=== PATIENT | male | born 1935 | race African-American/Black ===

== ENCOUNTER 2017-11-24 10:24 | Inpatient (IN) | payer MEDICARE, OTHER ==
[~2017-11-24] VITALS: Ht 182.9 cm; Wt 64.5 kg
[2017-11-24] MEDS ORDERED: Isovue-300 100ml vial INJ PRN (11:15)
--- NOTE | 2017-11-24 11:49 | Diagnostic Imaging Report ---
Indication: Dyspnea Comparison: None A single view chest radiograph was obtained. Findings: Patchy mild basal atelectasis demonstrated. Heart size is normal. Bones are osteopenic. IMPRESSION: Mild basal atelectasis
[2017-11-24 11:55] VITALS: BP 156/103
[2017-11-24 12:17] LABS: BASOPHILS % (AUTO) 0.8 % (0.0-2.0); HEMATOCRIT 54.6 % (42.0-52.0); HEMOGLOBIN 17.4 G/DL (14.2-18.0); LYMPHOCYTES % (AUTO) 20.8 % (20.0-45.0); MEAN CORPUSCULAR VOLUME 98 FL (80-99); NEUTROPHILS % (AUTO) 66.4 % (45.0-75.0); PLATELET COUNT 316 K/UL (150-450); RED BLOOD COUNT 5.55 M/UL (4.70-6.10); RED CELL DISTRIBUTION WIDTH 14.5 % (11.6-14.8); WHITE BLOOD COUNT 7.1 K/UL (4.8-10.8)
[2017-11-24 12:34] LABS: ANION GAP 13 mmol/L (5-15); BLOOD UREA NITROGEN 8 mg/dL (7-18); CALCIUM 9.7 MG/DL (8.5-10.1); CARBON DIOXIDE 28 MMOL/L (21-32); CHLORIDE 100 MMOL/L (98-107); CREATININE 0.9 MG/DL (0.55-1.30); POTASSIUM 3.7 MMOL/L (3.5-5.1); SODIUM 141 MMOL/L (136-145)
[2017-11-24 12:47] LABS: ALANINE AMINOTRANSFERASE 29 U/L (12-78); ALBUMIN/GLOBULIN RATIO 0.7 (1.0-2.7); ALKALINE PHOSPHATASE 157 U/L (46-116); ASPARTATE AMINO TRANSFERASE 57 U/L (15-37); BILIRUBIN,TOTAL 0.6 MG/DL (0.2-1.0); CKMB 1.9 NG/ML (0.0-3.6); CREATINE KINASE 117 U/L (26-308)
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
[2017-11-24 13:00] VITALS: BP 158/92
[2017-11-24 13:12] LABS: APPEARANCE,URINE CLOUDY; BILIRUBIN, URINE NEGATIVE (NEGATIVE); GLUCOSE, URINE (UA) NEGATIVE (NEGATIVE); KETONES,URINE NEGATIVE (NEGATIVE); LEUKOCYTE ESTERASE ,URINE 2+ (NEGATIVE); NITRITE,URINE POSITIVE (NEGATIVE); PH,URINE 6.5 (4.5-8.0); PROTEIN,URINE 2+ (NEGATIVE); UROBILINOGEN,URINE 1 MG/DL (0.0-1.0)
[2017-11-24 13:20] LABS: COLOR,URINE YELLOW
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
[2017-11-24] MEDS ORDERED: cefTRIAXone 1 GM in NS 55 ML IVPB ONE (14:00)
[2017-11-24] MEDS ORDERED: ASPIR-LOW81 MG ORAL (15:34)
[2017-11-24] MEDS ORDERED: HTN med (15:34)
[2017-11-24 15:39] VITALS: BP 173/84
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
[2017-11-24] MEDS ORDERED: Milk of Magnesia 30ml Ud ORAL PRN (19:00)
[2017-11-24] MEDS ORDERED: Zolpidem 5mg tab ORAL PRN (19:00)
[2017-11-24] MEDS ORDERED: Carvedilol 12.5mg tab ORAL SCH (19:00)
[2017-11-24 20:00] VITALS: BP 154/77
[2017-11-24] MEDS: NS w/KCl 20mEq 1,000 ML IV SCH (20:14)
[2017-11-24] MEDS: Heparin 5000 units/ml inj SUBQ SCH (20:15)
[2017-11-24] MEDS: Carvedilol 12.5mg tab ORAL SCH (21:00)
[2017-11-24 22:08] VITALS: BP 138/77
[2017-11-25] VITALS: BP 154/70
[2017-11-25 04:00] VITALS: BP 146/74
[2017-11-25] MEDS: NS w/KCl 20mEq 1,000 ML IV SCH ×3 (06:00→14:00)
[2017-11-25 06:25] LABS: BASOPHILS % (AUTO) 1.1 % (0.0-2.0); EOSINOPHILS % (AUTO) 1.5 % (0.0-3.0); HEMATOCRIT 43.9 % (42.0-52.0); HEMOGLOBIN 14.4 G/DL (14.2-18.0); LYMPHOCYTES % (AUTO) 17.5 % (20.0-45.0); MEAN CORPUSCULAR VOLUME 97 FL (80-99); MONOCYTES % (AUTO) 11.6 % (1.0-10.0); NEUTROPHILS % (AUTO) 68.4 % (45.0-75.0); PLATELET COUNT 284 K/UL (150-450); RED BLOOD COUNT 4.51 M/UL (4.70-6.10); RED CELL DISTRIBUTION WIDTH 13.8 % (11.6-14.8); WHITE BLOOD COUNT 7.5 K/UL (4.8-10.8)
[2017-11-25 07:00] LABS: ALANINE AMINOTRANSFERASE 20 U/L (12-78); ALBUMIN/GLOBULIN RATIO 0.7 (1.0-2.7); ALKALINE PHOSPHATASE 115 U/L (46-116); ANION GAP 7 mmol/L (5-15); ASPARTATE AMINO TRANSFERASE 28 U/L (15-37); BILIRUBIN,TOTAL 0.7 MG/DL (0.2-1.0); BLOOD UREA NITROGEN 8 mg/dL (7-18); CARBON DIOXIDE 31 MMOL/L (21-32); CHLORIDE 103 MMOL/L (98-107); CHOLESTEROL 181 MG/DL (< 200); CREATININE 0.9 MG/DL (0.55-1.30); HDL CHOLESTEROL 119 MG/DL (40-60); POTASSIUM 4.2 MMOL/L (3.5-5.1); SODIUM 141 MMOL/L (136-145); TRIGLYCERIDES 56 MG/DL (30-150)
[2017-11-25 08:00] VITALS: BP 139/80
[2017-11-25] MEDS ORDERED: Aspirin EC 81mg tab ORAL SCH (09:00)
[2017-11-25] MEDS: Carvedilol 12.5mg tab ORAL SCH ×2 (09:01→20:47)
[2017-11-25] MEDS: Heparin 5000 units/ml inj SUBQ SCH ×2 (09:03→20:48)
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
[2017-11-25 11:48] VITALS: BP 122/73
--- NOTE | 2017-11-25 12:17 | Infectious Diseases Prog Note ---
Assessment/Plan Assessment/Plan Full consult dictated: A) 1) strep uti, ? enterococcus 2) pmh noted 3) allergies - nkda P) 1) rocephin 2) add ampicillin 3) check urine culture 4) thank you Subjective Allergies: Coded Allergies: PENICILLINS (Verified Allergy, Unknown, 11/24/17) Objective Vital Signs Last 24 Hour Vital Signs Date Time Temp Pulse Resp B/P (MAP) Pulse Ox O2 Delivery O2 Flow Rate FiO2 11/25/17 11:48 99.1 65 18 122/73 (89) 97 99.1 11/25/17 09:02 80 139/80 11/25/17 09:01 80 139/80 11/25/17 09:00 Room Air 11/25/17 08:00 84 11/25/17 08:00 98.4 80 18 139/80 (99) 96 98.4 11/25/17 04:00 73 11/25/17 04:00 98.0 72 21 146/74 (98) 94 98.0 11/25/17 00:00 72 11/25/17 00:00 98.2 69 22 154/70 (98) 95 98.2 11/24/17 22:08 69 138/77 (97) 11/24/17 21:00 69 138/77 11/24/17 21:00 Room Air 11/24/17 20:00 98.6 72 18 154/77 (102) 94 98.6 11/24/17 20:00 82 11/24/17 19:37 87 169/98 11/24/17 19:37 87 169/98 11/24/17 17:58 Room Air 11/24/17 17:05 98 20 173/84 99 Room Air 11/24/17 15:39 98 16 173/84 99 Room Air 11/24/17 13:00 89 18 158/92 99 Room Air Height (Feet): 6 Height (Inches): 0.00 Weight (Pounds): 154 Microbiology Date/Time Source Procedure Growth Status 11/24/17 12:50 Urine,Clean Catch Urine Culture - Preliminary Staphylococcus Species Resulted 11/24/17 14:55 Rectal Mucosa VRE Culture Pending Resulted 11/24/17 14:55 Rectal Mucosa - Preliminary Resulted Laboratory Tests Test 11/24/17 12:50 11/24/17 14:55 11/25/17 05:55 8/28/18 07:00 Urine Color Yellow Urine Appearance Cloudy Urine pH 6.5 (4.5-8.0) Urine Specific [place] 1.015 (1.005-1.035) Urine Protein 2+ (NEGATIVE) H Urine Glucose (UA) Negative (NEGATIVE) Urine Ketones Negative (NEGATIVE) Urine Blood 2+ (NEGATIVE) H Urine Nitrite Positive (NEGATIVE) H Urine Bilirubin Negative (NEGATIVE) Urine Urobilinogen 1 MG/DL (0.0-1.0) H Urine Leukocyte Esterase 2+ (NEGATIVE) H Urine RBC 2-4 /HPF (0 - 0) H Urine WBC 10-15 /HPF (0 - 0) H Urine Squamous Epithelial Cells Few /LPF (NONE/OCC) Urine Bacteria Many /HPF (NONE) H Lactic Acid Level 2.60 mmol/L (0.66-2.22) H 1.20 mmol/L (0.4-2.0) White Blood Count 7.5 K/UL (4.8-10.8) Red Blood Count 4.51 M/UL (4.70-6.10) L Hemoglobin 14.4 G/DL (14.2-18.0) Hematocrit 43.9 % (42.0-52.0) Mean Corpuscular Volume 97 FL (80-99) Mean Corpuscular Hemoglobin 31.9 PG (27.0-31.0) H Mean Corpuscular Hemoglobin Concent 32.7 G/DL (32.0-36.0) Red Cell Distribution Width 13.8 % (11.6-14.8) Platelet Count 284 K/UL (150-450) Mean Platelet Volume 6.8 FL (6.5-10.1) Neutrophils (%) (Auto) 68.4 % (45.0-75.0) Lymphocytes (%) (Auto) 17.5 % (20.0-45.0) L Monocytes (%) (Auto) 11.6 % (1.0-10.0) H Eosinophils (%) (Auto) 1.5 % (0.0-3.0) Basophils (%) (Auto) 1.1 % (0.0-2.0) Sodium Level 141 MMOL/L (136-145) Potassium Level 4.2 MMOL/L (3.5-5.1) Chloride Level 103 MMOL/L (98-107) Carbon Dioxide Level 31 MMOL/L (21-32) Anion Gap 7 mmol/L (5-15) Blood Urea Nitrogen 8 mg/dL (7-18) Creatinine 0.9 MG/DL (0.55-1.30) Estimat Glomerular Filtration Rate mL/min (>60) Glucose Level 108 MG/DL (74-106) H Calcium Level 9.0 MG/DL (8.5-10.1) Total Bilirubin 0.7 MG/DL (0.2-1.0) Aspartate Amino Transf (AST/SGOT) 28 U/L (15-37) Alanine Aminotransferase (ALT/SGPT) 20 U/L (12-78) Alkaline Phosphatase 115 U/L (46-116) Troponin I 0.012 ng/mL (0.000-0.056) Total Protein 7.5 G/DL (6.4-8.2) Albumin 3.0 G/DL (3.4-5.0) L Globulin 4.5 g/dL Albumin/Globulin Ratio 0.7 (1.0-2.7) L Triglycerides Level 56 MG/DL (30-150) Cholesterol Level 181 MG/DL (< 200) LDL Cholesterol 40 mg/dL (<100) HDL Cholesterol 119 MG/DL (40-60) H Cholesterol/HDL Ratio 1.5 (3.3-4.4) L Thyroid Stimulating Hormone (TSH) 1.357 uiU/mL (0.358-3.740) Urine Opiates Screen Negative (NEGATIVE) Urine Barbiturates Screen Negative (NEGATIVE) Phencyclidine (PCP) Screen Negative (NEGATIVE) Urine Amphetamines Screen Negative (NEGATIVE) Urine Benzodiazepines Screen Negative (NEGATIVE) Urine Cocaine Screen Negative (NEGATIVE) Urine Marijuana (THC) Screen Negative (NEGATIVE) Current Medications Medications (Trade) Dose Ordered Sig/Kp Route PRN Reason Start Time Stop Time Status Last Admin Dose Admin Acetaminophen (Tylenol) 650 mg Q4H PRN ORAL Mild Pain/Temp > 100.5 11/24/17 19:00 12/24/17 18:59 Amlodipine Besylate (Norvasc) 5 mg DAILY ORAL 11/25/17 09:00 12/25/17 08:59 11/25/17 09:02 Aspirin (Ecotrin) 81 mg DAILY ORAL 11/25/17 09:00 12/25/17 08:59 11/25/17 09:02 Carvedilol (Coreg) 12.5 mg EVERY 12 HOURS ORAL 11/24/17 21:00 12/24/17 20:59 11/25/17 09:01 Ceftriaxone Sodium 1 gm/ Dextrose 55 ml @ 110 mls/hr Q24H IVPB 11/25/17 15:00 12/02/17 14:59 Clonidine HCl (Catapres Tab) 0.1 mg Q4H PRN ORAL SBP above 160mmHg 11/24/17 19:00 12/24/17 18:59 Heparin Sodium (Porcine) (Heparin 5000 units/ml) 5,000 units EVERY 12 HOURS SUBQ 11/24/17 21:00 12/24/17 20:59 11/25/17 09:03 Iopamidol (Isovue-300 100ml) 100 ml NOW PRN INJ Radiology Procedure 11/24/17 11:15 11/26/17 11:12 Magnesium Hydroxide (Mom) 30 ml DAILYPRN PRN ORAL Constipation 11/24/17 19:00 12/24/17 18:59 Sodium Chloride 1,000 ml @ 100 mls/hr Q10H IV 11/24/17 20:00 12/24/17 19:59 11/25/17 10:55 Zolpidem Tartrate (Ambien) 5 mg HSPRN PRN ORAL Insomnia 11/24/17 19:00 12/01/17 18:59 Maria M Sexton MD Nov 25, 2017 12:17
[2017-11-25] MEDS ORDERED: Milk of Magnesia 30ml Ud ORAL PRN (13:49)
[2017-11-25] MEDS ORDERED: Vancomycin 1250mg/D5W 250ml 250 ML IVPB ONE (14:00)
[2017-11-25] MEDS ORDERED: Vancomycin 1250mg/D5W 250ml IVPB SCH (14:00)
[2017-11-25] MEDS ORDERED: cefTRIAXone 1 GM in D5W 55 ML IVPB SCH ×4 (15:00)
--- NOTE | 2017-11-25 15:44 | Cardiology Report ---
APPROVED REPORT EKG Measurement Heart [id number] Sinus rhythm with occasional premature ventricular complexes Abnormal ECG
[2017-11-25 16:10] VITALS: BP 153/86
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
[2017-11-25] MEDS ORDERED: Zolpidem 5mg tab ORAL PRN (19:00)
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
[2017-11-25 19:34] VITALS: BP 151/80
[2017-11-26] MEDS: NS w/KCl 20mEq 1,000 ML IV SCH ×2 (00:34→09:45)
[2017-11-26 00:42] VITALS: BP 155/77
[2017-11-26] MEDS ORDERED: Vancomycin 750mg/NS 250ml 250 ML IVPB SCH (02:00)
[2017-11-26] MEDS ORDERED: Vancomycin 750mg/NS 250ml IVPB SCH (02:00)
--- NOTE | 2017-11-26 04:00 | Progress Note ---
DATE: 11/25/2017 CARDIOLOGY PROGRESS NOTE SUBJECTIVE: The patient has some less discomfort in his facies and chest wall. He has no shortness of breath. OBJECTIVE: VITAL SIGNS: Revealed blood pressure increasing from 122/73 to 151/80, heart rate 64, respiratory rate 17, and afebrile. Monitored rhythm, sinus. CHEST: Tender chest wall. No difficulty with breathing. No stridor. LUNGS: Clear. CARDIAC: Regular. Normal S1, S2 with no murmur. ABDOMEN: Soft. EXTREMITIES: There is no edema. LABORATORY DATA: White count 7.5 and hemoglobin 14.4. Troponin 0.012. Albumin 3. LDL cholesterol 40. Chemistry panel within normal limits. Lactic acid level now normal. Urine culture with Staph species. IMPRESSION: 1. Noncardiac chest pain. 2. Chest wall trauma. 3. Facial fractures. 4. Hypertension. 5. Mild protein-calorie malnutrition. 6. Resolved lactic acidosis. 7. Urinary tract infection. PLAN: 1. Antiplatelet therapy. 2. Stepwise titration of antihypertensives. 3. Maintain adequate hydration. 4. Empiric antibiotics per primary care physician. 5. No additional cardiovascular workup other than echocardiogram presently is pending. Janes Cuellar M.D. DR: SHAHIDA JOB#: [id number] CC:
[2017-11-26 04:18] VITALS: BP 108/59
[2017-11-26 06:40] LABS: BASOPHILS % (AUTO) 0.9 % (0.0-2.0); HEMATOCRIT 45.1 % (42.0-52.0); HEMOGLOBIN 14.8 G/DL (14.2-18.0); LYMPHOCYTES % (AUTO) 23.2 % (20.0-45.0); MEAN CORPUSCULAR VOLUME 97 FL (80-99); MONOCYTES % (AUTO) 9.3 % (1.0-10.0); NEUTROPHILS % (AUTO) 65.6 % (45.0-75.0); PLATELET COUNT 273 K/UL (150-450); RED BLOOD COUNT 4.63 M/UL (4.70-6.10); WHITE BLOOD COUNT 8.6 K/UL (4.8-10.8)
[2017-11-26 06:47] LABS: ANION GAP 6 mmol/L (5-15); BLOOD UREA NITROGEN 7 mg/dL (7-18); CALCIUM 8.7 MG/DL (8.5-10.1); CARBON DIOXIDE 30 MMOL/L (21-32); CHLORIDE 105 MMOL/L (98-107); CREATININE 0.9 MG/DL (0.55-1.30); POTASSIUM 3.9 MMOL/L (3.5-5.1); SODIUM 141 MMOL/L (136-145)
[2017-11-26 08:00] VITALS: BP 156/89
[2017-11-26] MEDS: Carvedilol 12.5mg tab ORAL SCH (08:32)
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
[2017-11-26] MEDS: Heparin 5000 units/ml inj SUBQ SCH (08:35)
[2017-11-26] MEDS ORDERED: COREG12.5 MG ORAL (08:36)
[2017-11-26] MEDS ORDERED: LEVAQUIN500 MG ORAL (08:36)
[2017-11-26] MEDS ORDERED: NORVASC5 MG ORAL (08:36)
[2017-11-26] MEDS ORDERED: Aspirin EC 81mg tab ORAL SCH (09:00)
[2017-11-26] MEDS ORDERED: Isovue-300 100ml vial INJ PRN (11:15)
[2017-11-26 11:43] VITALS: BP 123/75
--- NOTE | 2017-11-26 15:59 | Cardiology Report ---
APPROVED REPORT EXAM: Two-dimensional and M-mode echocardiogram with Doppler and color Doppler. INDICATION Chest Pain M-Mode DIMENSIONS IVSd1.3 (0.7-1.1cm)Left Atrium (MM)3.5 (1.6-4.0cm) LVDd4.5 (3.5-5.6cm)Aortic Root3.7 (2.0-3.7cm) PWd1.4 (0.7-1.1cm)Aortic Cusp Exc.2.0 (1.5-2.0cm) LVDs2.3 (2.5-4.0cm) PWs1.6 cm Technically difficult study due to poor apical windows. Normal left ventricular chamber size. Mild global left ventricular hypokinesis. Abnormal inferoseptal motion to extent visualized. Left ventricular ejection fraction estimated to be 40-45 %. Study quality precludes accurate assessment of regional wall motion. Mild left ventricular hypertrophy by 2-D. No evidence of pericardial effusion. All other cardiac chamber sizes are within normal limits. Focal aortic valve sclerosis with adequate cusp excursion. Thickened mitral valve leaflets with normal excursion. Mitral annulus and aortic root calcification. Pulmonic valve not well visualized. Normal tricuspid valve structure. IVC at normal size with physiologic collapse. A color flow and spectral Doppler study was performed and revealed: Trace mitral regurgitation. Mitral diastolic velocities suggest reduced left ventricular relaxation c/w LV diastolic dysfunction (Grade I ). Trace tricuspid regurgitation. Tricuspid systolic velocities suggests peak right ventricular systolic pressure of 19 mmHg.
--- NOTE | 2017-11-26 23:45 | Consultation ---
DATE OF CONSULTATION: 11/25/2017 INFECTIOUS DISEASES CONSULTATION CONSULTING PHYSICIAN: Maria M Sexton M.D. ATTENDING PHYSICIAN: Fidel Cloud M.D. REFERRING PHYSICIAN: Fidel Cloud M.D. REASON FOR CONSULTATION: Complicated urinary tract infection. CHIEF COMPLAINT: The patient's chief complaint coming into the hospital is chest pain, rule out acute coronary syndrome. HISTORY OF PRESENT ILLNESS: This is an 82-year-old male, who came in to [facility] because of chest pain, rule out acute coronary syndrome. The patient was noted to have positive urinalysis with positive nitrite, 2+ leukocyte esterase, 10 to 15 white blood cells, and many bacteria. Urine culture grew out Streptococcus organisms, identification is pending. Infectious Disease consultation is requested for antibiotic management. The patient was on Rocephin. I added vancomycin. The patient is allergic to penicillin and could not give ampicillin. Final urine culture results are pending. MAR was noted. Orders were noted. Notes were reviewed. Case was discussed with RN. PAST MEDICAL HISTORY: The patient's past medical history includes history of the following. The patient has past medical history of hypertension. There is no history of diabetes, cancer, or heart disease mentioned. He did come in with chest pain however. Per the records, in addition to hypertension he has a past medical history of hyperlipidemia or dyslipidemia. MEDICATIONS: Upon reviewing the MAR, the patient is on the following medications. He is on Norvasc, Ecotrin, vancomycin, Rocephin, Coreg, heparin, Ambien, acetaminophen, magnesium hydroxide, clonidine, zolpidem, heparin, carvedilol, again Norvasc or amlodipine. Outside medications noted and reconciliated. Antibiotics are vancomycin and Rocephin. ALLERGIES: Penicillin. SOCIAL HISTORY: Positive for alcoholism or ETOH. Negative for smoking or substance abuse. FAMILY HISTORY: Noncontributory. Negative for exposure to tuberculosis or cancer. REVIEW OF SYSTEMS: CONSTITUTIONAL: Generalized fatigue. No focal weakness. The patient had no fever, chills, night sweats, or weight loss. HEAD AND NECK: No head pain or neck pain. No thrush or dysphagia. No sinus tenderness. No change in vision. CARDIAC: The patient came with chest pain, actually no chest pain currently. GASTROINTESTINAL: No nausea, vomiting, or diarrhea. GENITOURINARY: Some dysuria and frequency. No CVA tenderness. No Cortes. PULMONARY: No congestion, shortness of breath, hemoptysis, or secretions. SKIN: No rash. EXTREMITIES: No extremity pain. NEUROLOGIC: No seizures. PHYSICAL EXAMINATION: VITAL SIGNS: Temperature was 98.4 degrees, pulse rate 80, respiratory rate 18, blood pressure 139/80, and saturation 96%. GENERAL: Alert, responsive, in no acute distress. HEAD AND NECK: Oral exam, no thrush. Eye exam, no icterus. Neck is supple. No JVD. Normocephalic. HEART: Regular. No obvious gallop or murmur. No friction rub. ABDOMEN: Soft. Positive bowel sounds. Nontender. No organomegaly. LUNGS: Clear bilaterally. No rhonchi or rales. SKIN: No rash. MUSCULOSKELETAL: No effusions. Legs are without cellulitis. PERIPHERAL VASCULAR: No cyanosis or gangrene. GENITOURINARY: No Cortes. No CVA tenderness. LINES: Line sites without phlebitis. SKIN: No rash. NEUROLOGIC: Generalized weakness, alert and responsive. LABORATORY AND DIAGNOSTIC DATA: Laboratory data is as follows, UA had positive nitrite, 2+ leukocyte esterase, and 10 to 15 white blood cells. Urine culture with strep species growing, identification pending. Creatinine 0.9. White count 7.5 and hemoglobin 14.4. Imaging studies, chest x-ray showed atelectasis only that was mild, no acute consolidation noted and reviewed. ASSESSMENT AND PLAN: 1. The patient has complicated UTI with possible strep UTI, must rule out Enterococcus. The patient has significantly positive urinalysis. Continue vancomycin and Rocephin pending final culture results. Continue treatment for possible Gram-negative UTI and also Streptococcus UTI including Enterococcus. Continue vancomycin and Rocephin. Check final urine culture. 2. Chest pain, rule out [place]. Treatment per primary. 3. Rule out facial fracture. 4. Hyperlipidemia or dyslipidemia. 5. Hypertension. 6. Blood pressure and lipid treatment per primary and Cardiology. 7. Allergy to penicillin. 8. Social history positive for alcoholism. No smoking or substance abuse. 9. Family history noncontributory. 10. MAR was noted. 11. Case was discussed with RN. 12. Continue treatment per primary consultants. 13. Notes and records were noted. Maria M Sexton M.D. DR: KEATON JOB#: [id number] CC:
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
== END 2017-11-26 12:45 | DRG 605 ==
LOC: EDBD 10:24 → EMR 11:05 → 2E 13:48 → EDBEDREQ 14:06 → 4W 11-25 13:39
DX: S20.219A Contusion of unspecified front wall of thorax, initial encounter (principal); S02.40CA Maxillary fracture, right side, initial encounter for closed fracture; N39.0 Urinary tract infection, site not specified; E44.1 Mild protein-calorie malnutrition; E87.2 Acidosis; S02.2XXA Fracture of nasal bones, initial encounter for closed fracture; S06.9X0A Unspecified intracranial injury without loss of consciousness, initial encounter; Y04.8XXA Assault by other bodily force, initial encounter; I10 Essential (primary) hypertension; R07.89 Other chest pain; E78.5 Hyperlipidemia, unspecified; Z88.0 Allergy status to penicillin; F10.21 Alcohol dependence, in remission; I16.0 Hypertensive urgency
CPT/HCPCS: 36415; 70450; 70488; 71045; 80048; 80053; 80061; 80307; 81003; 82550; 82553; 83605; 84443; 84484; 85025; 85610; 85730; 87081; 87086; 87181; 93005; 93306